=== PATIENT | female | born 1995 | race Caucasian/White ===

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

== ENCOUNTER 2017-08-14 18:34 | Emergency (ER) | payer OTHER, MEDICAID ==
[~2017-08-14] VITALS: Ht 160 cm; Wt 93.0 kg
[~2017-08-14 18:34] MED LIST changes: +ZOFR4TAB PO
[2017-08-14 18:44] VITALS: BP 131/63; PULSE 90; RESP 16; TEMP 98.6; O2SAT 99
--- NOTE | 2017-08-14 19:13 | PD ---
HPI Chief Complaint: Injury Time Seen by Provider: 18:58 Travel History International Travel<30 days: No Contact w/Intl Traveler<30days: No Traveled to known affect area: No History of Present Illness HPI 21-year-old female presents emergency department complaining of right ankle pain after she slipped and fell inverting her ankle. Patient states that her ankle was stuck between a curb and is currently complaining of lateral foot and ankle pain. States her pain is moderate in severity, nonradiating. Says she feels "numbness" on the lateral aspect of her foot. Says her pain is worse with movement that decreases with rest. Note the patient was ambulatory immediately after the incident. She denies head trauma, loss of consciousness, neck pain, back pain. She has no other complaints today. PFSH Past Medical History Developmental Delay: No Diminished Hearing: No Immunizations Current: Yes ?: Not LMP: 07/02/17 : 3 Para: 2 Miscarriage: 1 Past Surgical History Section: Yes Cholecystectomy: Yes Social History Alcohol Use: No (DENIES) Tobacco Use: No (DENIES) Substance Use: No (DENIES) Allergies-Medications (Allergen,Severity, Reaction): Coded Allergies: No Known Allergies (Unverified Adverse Reaction, Unknown, 08/14/17) Reported Meds & Prescriptions Reported Meds & Active Scripts Active No Active Prescriptions or Reported Medications Review of Systems Except as stated in HPI: all other systems reviewed are Neg Physical Exam Narrative GENERAL: Well-nourished, well-developed patient. SKIN: Focused skin assessment warm/dry. HEAD: Normocephalic. EYES: No scleral icterus. No injection or drainage. NECK: Supple, trachea midline. No JVD or lymphadenopathy. CARDIOVASCULAR: Regular rate and rhythm without murmurs, gallops, or rubs. RESPIRATORY: Breath sounds equal bilaterally. No accessory muscle use. MUSCULOSKELETAL: No cyanosis, or edema. Right ankle-tender palpation to lateral malleolus, difficulty with range of motion exercises secondary to pain. No obvious laxity. Neurovascular intact. Right hook tender palpation to the lateral aspect of the foot including the MTP to the proximal fifth metatarsal. No significant edema or ecchymosis. BACK: Nontender without obvious deformity. No CVA tenderness. Data Data Last Documented VS Vital Signs Date Time Temp Pulse Resp B/P (MAP) Pulse Ox O2 Delivery O2 Flow Rate FiO2 5/14/18 18:44 98.6 90 16 131/63 (85) 99 Orders Orders Foot, Complete ([id number]) (08/14/17 ) Ankle, Complete ([id number]) (08/14/17 ) Acetamin-Hydrocod 325-5 Mg ([place] 5-325 (08/14/17 19:15) Support Splint (08/14/17 19:52) MDM Medical Decision Making Medical Screen Exam Complete: Yes Emergency Medical Condition: Yes Differential Diagnosis Right ankle contusion, bursitis, cellulitis, fracture, osteonecrosis, avascular necrosis, sprain, strain: Right foot sprain, right foot strain, right foot fracture Narrative Course 21-year-old female presents emergency department complaining of right ankle pain after she slipped and fell inverting her ankle. Patient states that her ankle was stuck between a curb and is currently complaining of lateral foot and ankle pain. States her pain is moderate in severity, nonradiating. Says she feels "numbness" on the lateral aspect of her foot. Says her pain is worse with movement that decreases with rest. Note the patient was ambulatory immediately after the incident. She denies head trauma, loss of consciousness, neck pain, back pain. She has no other complaints today. Vital signs stable. Hydrocodone administered for pain. No acute fracture seen on x-rays. Ankle stirrup for comfort. Crutches for weightbearing as tolerated. Follow-up with the primary care physician. Consider follow-up with orthopedic physician or inpatient coder if symptoms persist or worsen. Diagnosis Primary Impression: Foot contusion Qualified Codes: S90.31XA - Contusion of right foot, initial encounter Additional Impression: Ankle sprain Qualified Codes: S93.401A - Sprain of unspecified ligament of right ankle, initial encounter Referrals: Orthopedist Manager Clinical Services Primary Care Physician Patient Instructions: Ankle Exercises (GEN), Ankle Strain (ED), General Instructions Departure Forms: Tests/Procedures, Work Release Enter return to work date: August 16, 2017 Special Instructions: Allow off-loading as needed for pain up to 1-2 weeks. Additional Instructions: Weightbearing as tolerated. Your pain may persist for 1-2 weeks. Use ice or heat for symptom relief. If no contraindications, you may use Tylenol or Motrin per package instructions for your pain. Elevate the joint above the heart to reduce swelling. You may use compression with Vito wrap or similar to reduce swelling. If symptoms persist or worsen, return to the emergency department. Follow up with your primary care physician within 2 days. Scripts No Active Prescriptions or Reported Meds Disposition: 01 DISCHARGE HOME Condition: Stable Maria R Alvarez August 14, 2017 19:13
[2017-08-14] MEDS ORDERED: ACETAMINOPHEN/HYDROcodone 325 MG/5 MG TAB PO ONE (19:15)
--- NOTE | 2017-08-14 19:49 | RADRPT ---
EXAM DATE/TIME: 08/14/2017 19:10 [facility] COMPARISON: No previous studies available for comparison. INDICATIONS : Right lateral ankle pain after twisting ankle today. MEDICAL HISTORY : None. SURGICAL HISTORY : None. ENCOUNTER: Initial ACUITY: 1 day PAIN SCORE: 8/10 LOCATION: Right ankle FINDINGS: Three view exam was performed of the right ankle. The bony structures are in normal alignment. No e vidence of fracture, dislocation, or soft tissue swelling. The ankle mortise is intact. No radiopaq ue foreign bodies are seen. Bony mineralization is normal. CONCLUSION: Unremarkable examination of the right ankle. Rao Aguero MD on August 14, 2017 at 19:46 Board Certified Radiologist. This report was verified electronically.
--- NOTE | 2017-08-14 19:49 | RADRPT ---
EXAM DATE/TIME: 08/14/2017 19:10 [facility] COMPARISON: No previous studies available for comparison. INDICATIONS : Right lateral foot and ankle pain after twisting ankle today. MEDICAL HISTORY : None. SURGICAL HISTORY : None. ENCOUNTER: Initial ACUITY: 1 day PAIN SCORE: 8/10 LOCATION: Right foot FINDINGS: Three view examination of the right foot demonstrates no soft tissue swelling, dislocation, or fractu re. The tarsal bones appear intact. The interphalangeal and metatarsophalangeal joints are intact. The calcaneus is intact. Bony mineralization is normal. CONCLUSION: Unremarkable examination of the right foot. Rao Aguero MD on August 14, 2017 at 19:46 Board Certified Radiologist. This report was verified electronically.
== END 2017-08-14 20:10 | disposition home or self-care (01) ==
LOC: PHEFT 18:34
DX: S90.31XA Contusion of right foot, initial encounter (principal); S93.401A Sprain of unspecified ligament of right ankle, initial encounter; W01.0XXA Fall on same level from slipping, tripping and stumbling without subsequent striking against object, initial encounter
CPT/HCPCS: 73610; 73630; 99283; E0113; L1906